=== PATIENT | female | born 1985 | race Caucasian/White ===

== ENCOUNTER 2017-11-06 18:49 | Emergency (ER) | payer MEDICAID, OTHER ==
--- NOTE | 2017-11-06 20:11 | C.PDOC ---
History Of Present Illness 32 years old female presents to ED with complaints of right hand pain after falling yesterday. Patient states she administered Ibuprofen for mild pain relief. Denies any weakness, numbness. Time Seen by Provider: 11/06/17 19:31 Chief Complaint (Nursing): Finger,Hand,&Wrist History Per: Patient History/Exam Limitations: no limitations Onset/Duration Of Symptoms: Days (1) Current Symptoms Are (Timing): Still Present Quality: "Pain" Severity: Moderate Pain Scale Rating Of: 4 Exacerbating Factor(s): Movement Recent travel outside of the [place]: No Past Medical History Reviewed: Historical Data, Nursing Documentation, Vital Signs Vital Signs: Last Vital Signs Temp 97.8 F 11/06/17 20:53 Pulse 79 11/06/17 20:53 Resp 17 11/06/17 20:53 BP 135/68 11/06/17 20:53 Pulse Ox 97 11/06/17 20:53 - Medical History PMH: No Chronic Diseases Surgical History: No Surg Hx Family History: States: No Known Family Hx - Social History Hx Tobacco Use: No Hx Alcohol Use: No Hx Substance Use: No - Immunization History Hx Tetanus Toxoid Vaccination: No Hx Influenza Vaccination: No Hx Pneumococcal Vaccination: No Review Of Systems Constitutional: Negative for: Fever, Chills Musculoskeletal: Positive for: Hand Pain (Right hand) Neurological: Negative for: Weakness, Numbness Psych: Negative for: Depression, Suicidal ideation Physical Exam - Physical Exam Appears: Non-toxic, Other (Awake and alert ) Skin: Normal Color, Warm, Dry Eye(s): bilateral: Normal Inspection Oral Mucosa: Moist Neck: Supple Respiratory: Normal Breath Sounds Extremity: Tenderness (minimal on 4th and 5th metacarpal area), Capillary Refill (normal), No Deformity, No Swelling Extremity: Bilateral: Normal Color And Temperature Pulses: Right Radial: Normal Neurological/Psych: Oriented x3, Normal Speech, Normal Cognition ED Course And Treatment O2 Sat by Pulse Oximetry: 98 (Room air) Pulse Ox Interpretation: Normal - Other Rad Right Hand XR X-Ray: Interpreted by Me, Viewed By Me Interpretation: No fx or dislocation Progress Note: Administered Motrin Tab and ordered X-ray of right hand. XR reviewed and d/w pt and advised ICE and motrin PO Reassessment Condition: Improved Disposition - Disposition Referrals: Mundo Cosby MD [Medical Doctor] - Disposition: HOME/ ROUTINE Disposition Time: 20:42 Condition: STABLE Additional Instructions: Apply Ice to area' Follow up with PMD Take motrin for pain Return to ER if worse Prescriptions: Ibuprofen [Motrin] 600 mg PO Q6H #20 tab Instructions: Contusion in Adults (ED) Forms: [facility] (Hebrew) - Clinical Impression Clinical Impression: Contusion of hand, right - PA / NETWORK CABLER / Resident Statement MD/DO has reviewed & agrees with the documentation as recorded. - Scribe Statement The provider has reviewed the documentation as recorded by the Scribe Claudia Epperson All medical record entries made by the Rory were at my direction and personally dictated by me. I have reviewed the chart and agree that the record accurately reflects my personal performance of the history, physical exam, medical decision making, and the department course for this patient. I have also personally directed, reviewed, and agree with the discharge instructions and disposition.
[2017-11-06 20:56] VITALS: BP 135/68; PULSE 79; RESP 17; TEMP 97.8
[2017-11-07 01:33] VITALS: O2SAT 98
--- NOTE | 2017-11-07 08:57 | RAD ---
PROCEDURE: Right Hand Radiographs. HISTORY: trauma, pain and swelling lateral 4th, 5th COMPARISON: None. FINDINGS: BONES: Normal. No fracture. JOINTS: Normal. No osteoarthritic changes. SOFT TISSUES: Normal. OTHER FINDINGS: None. IMPRESSION: Normal right hand radiographs.
== END 2017-11-06 20:53 | disposition home or self-care (01) ==
LOC: C.ER 18:49
DX: S60.221A Contusion of right hand, initial encounter (principal); W19.XXXA Unspecified fall, initial encounter